=== PATIENT | male | born 1985 | race Hispanic/Latino ===

== ENCOUNTER 2017-06-28 08:08 | Emergency (ER) | payer SELFPAY ==
[~2017-06-28] VITALS: Ht 154.9 cm; Wt 77.1 kg
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
[2017-06-28 09:42] VITALS: BP 140/84
== END 2017-06-28 09:43 ==
LOC: ERH 08:08
DX: S09.90XA Unspecified injury of head, initial encounter (principal); V49.40XA Driver injured in collision with unspecified motor vehicles in traffic accident, initial encounter; Y92.9 Unspecified place or not applicable